=== PATIENT | female | born 1960 | race Caucasian/White ===

== ENCOUNTER → 2018-08-26 | Outpatient (REF) | payer BC ==
[~2018-08-26] MED LIST: FEOSOL45 MG PO; FERR SULFATE325 MG PO; METOPROL TAR25 M1 PO; METOPROLOL TART50 MG PO; TRAMADOL HCL50 MG PO; ULTRAM50 M1 PO
== END | disposition home or self-care (01) | DRG 951 ==
LOC: MAMMO 08:04
PROVIDERS: ATTEND Nurse Practitioner Adult Health
DX: Z12.31 Encounter for screening mammogram for malignant neoplasm of breast (principal)